=== PATIENT | male | born 2000 | race Caucasian/White ===

== ENCOUNTER 2018-04-19 08:28 | Emergency (ER) | payer OTHER ==
[~2018-04-19] VITALS: Ht 182.9 cm; Wt 97.5 kg
[2018-04-19] MEDS ORDERED: IV NORMAL SALINE 1,000ML 1,000 ML IV ONE (08:45)
--- NOTE | 2018-04-19 08:55 | PHYS DOC ---
Past History Past Medical History: No Pertinent History Past Surgical History: Other Alcohol Use: None Drug Use: None Adult General Chief Complaint Chief Complaint: MULTIPLE COMPLAINTS HPI HPI 18-year-old male presents with fatigue, cough, and abdominal pain. He tells me he has had intermittent abdominal pain that he believes his GERD for some time. Over the last several days he has had pain after eating. He ate a small amount this morning before his physical training and again had epigastric abdominal pain. The patient then did this pushups sit ups and 2 mile run outside. He is from [place]. He is having throat pain and a cough. He states he was not coughing prior to the run. The weather outside is in the upper 20s. He is feeling generally tired all over. He denies fever or chills. He takes Zantac when necessary for GERD. Review of Systems Review of Systems Constitutional: Denies fever or chills [] Eyes: Denies change in visual acuity, redness, or eye pain [] HENT: Sore throat [] Respiratory: Cough without shortness of breath [] Cardiovascular: No additional information not addressed in HPI [] GI: Epigastric abdominal pain. Denies vomiting, bloody stools or diarrhea [] : Denies dysuria or hematuria [] Musculoskeletal: Denies back pain or joint pain [] Integument: Denies rash or skin lesions [] Neurologic: Denies headache, focal weakness or sensory changes [] Endocrine: Denies polyuria or polydipsia [] All other systems were reviewed and found to be within normal limits, except as documented in this note. Current Medications Current Medications Current Medications Medications (Trade) Dose Ordered Sig/[facility] Start Time Stop Time Status Last Admin Dose Admin Ondansetron HCl (Zofran) 4 mg 1X ONCE 04/19/18 08:45 04/19/18 08:46 UNV Sodium Chloride 1,000 ml @ 1,000 mls/hr 1X ONCE 04/19/18 08:45 04/19/18 09:44 UNV Physical Exam Physical Exam Constitutional: Well developed, well nourished, no acute distress, non-toxic appearance. [] HENT: Normocephalic, atraumatic, bilateral external ears normal, oropharynx moist, no oral exudates, nose normal. [] Eyes: PERRLA, EOMI, conjunctiva normal, no discharge. [] Neck: Normal range of motion, no tenderness, supple, no stridor. [] Cardiovascular:Heart rate regular rhythm, no murmur [] Lungs & Thorax: Bilateral breath sounds clear to auscultation [] Abdomen: Bowel sounds normal, soft, no tenderness, no masses, no pulsatile masses. [] Skin: Warm, dry, no erythema, no rash. [] Back: No tenderness, no CVA tenderness. [] Extremities: No tenderness, no cyanosis, no clubbing, ROM intact, no edema. [] Neurologic: Alert and oriented X 3, normal motor function, normal sensory function, no focal deficits noted. [] Psychologic: Affect normal, judgement normal, mood normal. [] Current Patient Data Vital Signs Vital Signs Date Time Temp Pulse Resp B/P (MAP) Pulse Ox O2 Delivery O2 Flow Rate FiO2 04/19/18 08:46 98.8 89 20 95 Room Air EKG EKG [] Radiology/Procedures Radiology/Procedures [] Course & Med Decision Making Course & Med Decision Making Pertinent Labs and Imaging studies reviewed. (See chart for details) Patient's labs remarkable for a slightly elevated white count. We have given him 4 Zofran and a liter of normal saline. I will patient's cough was fairly due to running outside in the cold air for the first time. This is a common reaction in cold weather running. The patient is feeling better at this time. He is stable for discharge at this time. [] Dragon Disclaimer Dragon Disclaimer This electronic medical record was generated, in whole or in part, using a voice recognition dictation system. Departure Departure: Referrals: PCP,SMILEY (PCP) SAVITA FONSECA DO Apr 19, 2018 08:55
[2018-04-19] MEDS ORDERED: ONDANSETRON PF 4 MG/2 ML VIAL. IV ONE (09:00)
[2018-04-19 09:08] LABS: BASO % 0 % (0-3); EOS % 0 % (0-3); HEMATOCRIT 45.9 % (39.0-53.0); HEMOGLOBIN 15.7 g/dL (13.0-17.5); LYMPH # 1.1 x10^3/uL (1.0-4.8); LYMPH % 9 % (24-48); MEAN CORPUSCULAR HEMOGLOBIN 29 pg (25-35); MEAN CORPUSCULAR HGB CONC 34 g/dL (31-37); MEAN CORPUSCULAR VOLUME 86 fL (79-100); MONO # 0.9 x10^3/uL (0.0-1.1); MONO % 7 % (0-9); NEUT # 10.5 x10^3uL (1.8-7.7); NEUT % 83 % (31-73); PLATELET COUNT 285 x10^3/uL (140-400); RED BLOOD COUNT 5.33 x10^6/uL (4.30-5.70); RED CELL DISTRIBUTION WIDTH 13.2 % (11.5-14.5); WHITE BLOOD COUNT 12.6 x10^3/uL (4.0-11.0)
[2018-04-19 09:20] LABS: ALBUMIN 4.1 g/dL (3.4-5.0); CALCIUM 9.1 mg/dL (8.5-10.1); CREATININE 1.1 mg/dL (0.7-1.3); GFR 85.3; TOTAL BILIRUBIN 0.5 mg/dL (0.2-1.0); TOTAL PROTEIN 8.1 g/dL (6.4-8.2)
[2018-04-19 11:01] VITALS: BP 122/68
== END 2018-04-19 11:02 | disposition home or self-care (01) ==
LOC: ER 08:28
DX: D72.829 Elevated white blood cell count, unspecified (principal); R05 Cough; R10.13 Epigastric pain
CPT/HCPCS: 36415; 80053; 85025; 96374; 99283; J2405; 96361; J7030

== ENCOUNTER 2019-02-10 19:35 | Emergency (ER) | payer OTHER ==
[~2019-02-10] VITALS: Ht 180.3 cm; Wt 104.3 kg
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
[2019-02-10] MEDS ORDERED: IBUPROFEN 600 MG TABLET. PO ONE ×2 (20:07→20:15)
[2019-02-10 20:25] VITALS: BP 141/87
--- NOTE | 2019-02-10 20:39 | RAD ---
Three-view right foot radiographs 02/10/2019 CLINICAL HISTORY: Injury to the right foot yesterday with bruising and swelling in the region of the first toe. AP, lateral and oblique digital radiographs of the right foot were obtained. No fracture or dislocation of the right foot is seen. No radiopaque foreign body is noted. IMPRESSION: No fracture or dislocation of the right foot is seen. Electronically signed by: Rich Blair MD (02/10/2019 8:36 PM) [facility]
== END 2019-02-10 20:26 | disposition home or self-care (01) ==
LOC: ER 19:35
DX: S90.31XA Contusion of right foot, initial encounter (principal); W20.8XXA Other cause of strike by thrown, projected or falling object, initial encounter; Y93.B9 Activity, other involving muscle strengthening exercises; Y92.89 Other specified places as the place of occurrence of the external cause; Y99.8 Other external cause status
CPT/HCPCS: 73630; 99284

== ENCOUNTER 2019-05-01 09:30 | Emergency (ER) | payer OTHER ==
[~2019-05-01] VITALS: Ht 180.3 cm; Wt 106.6 kg
--- NOTE | 2019-05-01 10:14 | PHYS DOC ---
Past History Past Medical History: Anxiety Past Surgical History: Other Additional Past Surgical Histo: WISDOM TEETH Smoking: Quit Less Than 1 Year Additional Smoking Information: e-cigarettes Alcohol Use: None Drug Use: None Adult General Chief Complaint Chief Complaint: BLOODY STOOL HPI HPI Patient is a 19-year-old male presents complaining of rectal bleeding with stool for the past week. This may have started with a harder than usual stool. Patient has been taking NSAIDs, ibuprofen, with the last dose being 3 days prior to the onset of rectal bleeding. He denies any anal receptive intercourse. Denies any recent changes in weight. Pain is only present when he has a bowel movement, and it is mild in nature.[] Review of Systems Review of Systems Constitutional: Denies fever or chills [] Eyes: Denies change in visual acuity, redness, or eye pain [] HENT: Denies nasal congestion or sore throat [] Respiratory: Denies cough or shortness of breath [] Cardiovascular: No chest pain or palpitations[] GI: See history of present illness[] : Denies dysuria or hematuria [] Musculoskeletal: Denies back pain or joint pain [] Integument: Denies rash or skin lesions [] Neurologic: Denies headache, focal weakness or sensory changes [] Endocrine: Denies polyuria or polydipsia [] All other systems were reviewed and found to be within normal limits, except as documented in this note. Allergies Allergies Allergies Coded Allergies Type Severity Reaction Last Updated Verified No Known Drug Allergies 04/19/18 No Physical Exam Physical Exam Constitutional: Well developed, well nourished, no acute distress, non-toxic appearance. [] HENT: Normocephalic, atraumatic, bilateral external ears normal, oropharynx moist, no oral exudates, nose normal. [] Eyes: PERRLA, EOMI, conjunctiva normal, no discharge. [] Neck: Normal range of motion, no tenderness, supple, no stridor. [] Cardiovascular:Heart rate regular rhythm, no murmur [] Lungs & Thorax: Bilateral breath sounds clear to auscultation [] Abdomen: Bowel sounds normal, soft, no tenderness, no masses, no pulsatile masses. No caput medusa. Rectal exam showed no external hemorrhoids, no stool in the vault, no blood was present [] Skin: Warm, dry, no erythema, no rash. No petechiae[] Back: No tenderness, no CVA tenderness. [] Extremities: No tenderness, no cyanosis, no clubbing, ROM intact, no edema. [] Neurologic: Alert and oriented X 3, normal motor function, normal sensory function, no focal deficits noted. [] Psychologic: Affect normal, judgement normal, mood normal. [] Current Patient Data Lab Results Laboratory Tests Test 05/01/19 10:18 White Blood Count 6.9 x10^3/uL Red Blood Count 5.04 x10^6/uL Hemoglobin 15.2 g/dL Hematocrit 44.7 % Mean Corpuscular Volume 89 fL Mean Corpuscular Hemoglobin 30 pg Mean Corpuscular Hemoglobin Concent 34 g/dL Red Cell Distribution Width 13.1 % Platelet Count 241 x10^3/uL Neutrophils (%) (Auto) 55 % Lymphocytes (%) (Auto) 34 % Monocytes (%) (Auto) 8 % Eosinophils (%) (Auto) 2 % Basophils (%) (Auto) 1 % Neutrophils # (Auto) 3.8 x10^3uL Lymphocytes # (Auto) 2.3 x10^3/uL Monocytes # (Auto) 0.6 x10^3/uL Eosinophils # (Auto) 0.1 x10^3/uL Basophils # (Auto) 0.1 x10^3/uL Prothrombin Time 10.4 SEC Prothromb Time International Ratio 1.0 Activated Partial Thromboplast Time 26 SEC Stool Occult Blood Positive Sodium Level 144 mmol/L Potassium Level 4.1 mmol/L Chloride Level 107 mmol/L Carbon Dioxide Level 28 mmol/L Anion Gap 9 Blood Urea Nitrogen 13 mg/dL Creatinine 0.9 mg/dL Estimated GFR (Cockcroft-Gault) 106.5 Glucose Level 103 mg/dL Calcium Level 8.5 mg/dL EKG EKG [] Radiology/Procedures Radiology/Procedures Acute abdominal series radiographs were obtained that showed no evidence of an obstruction, free air, no pneumonia, no pneumothorax, no pleural effusion[] Course & Med Decision Making Course & Med Decision Making Pertinent Labs and Imaging studies reviewed. (See chart for details) Emergency department course: Patient arrived, was placed in bed, and tolerated exam well. He was transported to and from radiology with any complications. After return of laboratory and imaging findings, these were discussed with the patient voiced understanding. All questions were answered. He was discharged in improved condition. Medical decision making: Believe the patient to have a rectal fissure. There is no evidence of an upper GI bleed. No evidence of significant anemia. No evidence of a bleeding diathesis. This may have also been exacerbated by his recent NSAID use.[] Dragon Disclaimer Dragon Disclaimer This electronic medical record was generated, in whole or in part, using a voice recognition dictation system. Departure Departure: Impression: Primary Impression: Rectal bleeding Disposition: HOME, SELF-CARE Condition: IMPROVED Referrals: PAM CRAWFORD PA-C (PCP) Follow-up in 2 days Patient Instructions: Rectal Bleeding, Sitz Bath Additional Instructions: Follow-up with your regular doctor in 2 days. Avoid anti-inflammatories like ibuprofen and naproxen. Perform a sitz bath after each bowel movement and 4 ti mes a day. Take the medication as prescribed. Return to the ER if worsening pain, increasing bleeding, or any other concerns. Scripts Acetaminophen (TYLENOL) 325 Mg Tablet 1-2 TAB PO QID for PAIN, #60 TAB 0 Refills Prov: KENTRELL FERNANDEZ DO 05/01/19 Hydrocortisone (ANUSOL-HC) 30 Gm Cream..g. 1 CINTHIA TP BID for rectal fissure for 12 Days, #30 GM 0 Refills Prov: KENTRELL FERNANDEZ DO 05/01/19 Polyethylene Glycol 3350 (MIRALAX) 119 Gm Powder 17 GM PO DAILY for stool softener, #255 GM 0 Refills dissolve in water Prov: KENTRELL FERNANDEZ DO 05/01/19 KENTRELL FERNANDEZ DO May 01, 2019 10:14
[2019-05-01 10:24] VITALS: BP 120/59
[2019-05-01 10:42] LABS: BASO # 0.1 x10^3/uL (0.0-0.2); BASO % 1 % (0-3); EOS # 0.1 x10^3/uL (0.0-0.7); EOS % 2 % (0-3); HEMATOCRIT 44.7 % (39.0-53.0); HEMOGLOBIN 15.2 g/dL (13.0-17.5); LYMPH # 2.3 x10^3/uL (1.0-4.8); LYMPH % 34 % (24-48); MEAN CORPUSCULAR HEMOGLOBIN 30 pg (25-35); MEAN CORPUSCULAR HGB CONC 34 g/dL (31-37); MEAN CORPUSCULAR VOLUME 89 fL (79-100); MONO # 0.6 x10^3/uL (0.0-1.1); MONO % 8 % (0-9); NEUT # 3.8 x10^3uL (1.8-7.7); NEUT % 55 % (31-73); PLATELET COUNT 241 x10^3/uL (140-400); RED BLOOD COUNT 5.04 x10^6/uL (4.30-5.70); RED CELL DISTRIBUTION WIDTH 13.1 % (11.5-14.5); WHITE BLOOD COUNT 6.9 x10^3/uL (4.0-11.0)
[2019-05-01 10:44] LABS: CALCIUM 8.5 mg/dL (8.5-10.1); CREATININE 0.9 mg/dL (0.7-1.3); GFR 106.5; POTASSIUM 4.1 mmol/L (3.5-5.1)
[2019-05-01 10:47] LABS: FECAL OB PT POSITIVE (NEG)
[2019-05-01] MEDS ORDERED: HYDR30CR61 TP (11:00)
[2019-05-01] MEDS ORDERED: ACET325T9 PO (11:00)
[2019-05-01] MEDS ORDERED: POLY119P4 PO (11:00)
--- NOTE | 2019-05-01 11:18 | RAD ---
ACUTE ABDOMEN SERIES INDICATION: Rectal bleeding. COMPARISON STUDY: None. FINDINGS: Lungs: Normal lung volume. No pulmonary mass or consolidation. The tracheobronchial tree and hilar structures are normal. Pleura: No pleural effusion or pneumothorax. Heart and Mediastinum: The cardiomediastinal silhouette is normal. The great vessels of the thorax are normal. Abdomen: Nonobstructive bowel gas pattern. No free air. Moderate colonic stool burden. Bones and Soft Tissues: No acute osseous abnormality. Minimal left convex lumbar curvature. IMPRESSION: 1. Nonobstructive bowel gas pattern. Moderate colonic stool burden. 2. No focal airspace disease. Electronically signed by: Rodrigo Alston MD (05/01/2019 11:15 AM) [facility]
== END 2019-05-01 11:20 | disposition home or self-care (01) ==
LOC: ER 09:30
DX: K62.5 Hemorrhage of anus and rectum (principal); F41.9 Anxiety disorder, unspecified; Z87.891 Personal history of nicotine dependence
CPT/HCPCS: 36415; 74022; 80048; 82274; 85025; 85610; 85730; 99285